=== PATIENT | female | born 1970 | race African-American/Black ===

== ENCOUNTER 2021-06-11 07:00 | Emergency (ER) | payer OTHER ==
[~2021-06-11] VITALS: Ht 165.1 cm; Wt 64.4 kg
--- NOTE | 2021-06-11 07:03 | NUR ---
PT BRANDIE BLS. TAKEN TO BED 3
[2021-06-11] MEDS ORDERED: MORPHINE SULFATE 4 MG/ML SYR IVP ONE (07:10)
[2021-06-11 07:12] VITALS: BP 155/93
--- NOTE | 2021-06-11 07:12 | NUR ---
51 y/o F [place] from grocery store c/o acute onset of substernal chest pain x 30 minutes prior to ER arrival. Pt A&Ox4, ambulatory, reports 7/10, sharp/intermittent, radiating to right arm that worsened. Pt states similar symptoms in the past alleviated with Tylenol. Denies fever, chills, nausea, vomiting, headache, edema. Pt received ASA 324mg by EMS prior to arrival; refused IV and NTG d/t contraindications with her levothyroxine. Cap refill immediate; skin pink/warm/dry. Pt placed onto monitor tech and gown. VSS. Bed locked in lowest position, side rails x 1. PMH: hypothyroidism, HTN Meds: lisinopril, levothyroxine A: PCN, sulfa, hydrochlorothiazide, clonidine
--- NOTE | 2021-06-11 07:15 | NUR ---
Patient refusing Morphine at this time. Dr. Newby made aware.
--- NOTE | 2021-06-11 07:24 | NUR ---
RAD at bedside
[2021-06-11 08:41] LABS: BASOPHILS # (AUTO) 0.1 K/uL (0.00-0.22); BASOPHILS % (AUTO) 1.2 % (0.0-2.0); EOSINOPHILS % (AUTO) 0.4 % (0.0-4.0); HEMATOCRIT 41.2 % (36-48); HEMOGLOBIN 13.7 g/dL (12.0-16.0); LYMPHOCYTES # (AUTO) 0.7 K/uL (2.5-16.5); LYMPHOCYTES % (AUTO) 14.5 % (20.5-51.1); MEAN CORPUSCULAR HEMOGLOBIN 30 pg (27-31); MEAN CORPUSCULAR HGB CONC 33 g/dL (33-37); MEAN CORPUSCULAR VOLUME 90.8 fL (80-94); MONOCYTES # (AUTO) 0.3 K/uL (0.8-1.0); MONOCYTES % (AUTO) 5.3 % (1.7-9.3); NEUTROPHILS % (AUTO) 78.6 % (42.2-75.2); PLATELET COUNT (AUTO) 249 K/uL (140-450); RED BLOOD CELL COUNT(AUTO) 4.54 MIL/uL (4.20-5.40); RED CELL DISTRIBUTION WIDTH 14.7 % (11.6-13.7); WHITE BLOOD COUNT (AUTO) 5.1 K/uL (4.8-10.8)
[2021-06-11] MEDS ORDERED: ACETAMINOPHEN EXTRA STRENGTH 500 MG TAB PO ONE (08:45)
--- NOTE | 2021-06-11 08:56 | NUR ---
Pt reports symptoms alleviated with rest; rates pain 4/10 at this time. All pt needs met. linseed cake trimmer remains in place. Respirations even/unlabored.
[2021-06-11 09:43] LABS: ALBUMIN 3.9 g/dL (3.4-5.0); ANION GAP 12.4 (8-16); CARBON DIOXIDE 28.9 mmol/L (21-32); CREATININE 0.9 mg/dL (0.6-1.3); MAGNESIUM 2.2 mg/dL (1.8-2.4); PHOSPHORUS 4.8 mg/dL (2.5-4.9); POTASSIUM 4.3 mmol/L (3.5-5.1); TOTAL BILIRUBIN 0.4 mg/dL (0.0-1.0)
--- NOTE | 2021-06-11 09:50 | NUR ---
Pt states pain 2/10 at this time. All pt needs met. desk monitor in place. VSS. Respirations even/unlabored. Bed locked in lowest position, side rails x 1.
[2021-06-11 12:26] VITALS: BP 156/81
--- NOTE | 2021-06-11 12:44 | NUR ---
Patient discharged with v/s stable. Written and verbal after care instructions given and explained. Patient verbalized understanding. Ambulatory with steady gait. All questions addressed prior to discharge. Advised to follow up with PMD.
== END 2021-06-11 12:44 | disposition home or self-care (01) ==
LOC: MED 07:00
DX: R07.89 Other chest pain (principal); I10 Essential (primary) hypertension; E03.9 Hypothyroidism, unspecified
CPT/HCPCS: 36415; 71045; 80053; 83735; 84100; 84484; 85025; 93005; 99285; Q0092

== ENCOUNTER 2021-08-21 07:37 | Emergency (ER) | payer OTHER ==
[~2021-08-21] VITALS: Ht 165.1 cm; Wt 58.2 kg
[2021-08-21 07:39] VITALS: BP 191/100
--- NOTE | 2021-08-21 07:52 | NUR ---
AT PT BEDSIDE
[2021-08-21] MEDS ORDERED: KETOROLAC 30 MG/ML VIAL IM ONE (07:55)
[2021-08-21] MEDS ORDERED: ACETAMINOPHEN 325 MG TAB PO ONE (07:55)
--- NOTE | 2021-08-21 07:58 | NUR ---
PT AMBULATED TO THE RESTROOM
--- NOTE | 2021-08-21 07:58 | NUR ---
51 Y/O FEMALE BIB SELF DUE TO C/O BODY ACHES X1 DAY. PT STATES SHE HAS BEEN HAVING R HAND NUMBNESS X TODAY. PT DENIES ANY FEVER/CHILLS/SOB. CURRENT BP 191/100. PT DENIES TAKING BP MEDICATION THIS AM DUE TO CAUSING BODY ACHES. PT IS ALERT AND ORIENTED X4. BED IN LOWEST POSITION. BED RAIL X1. PMH: HTN, HYPOTHYROID ALLERGIES: PENICILLINS, SULFA
--- NOTE | 2021-08-21 08:00 | NUR ---
LAB AT PT BEDSIDE
--- NOTE | 2021-08-21 08:12 | NUR ---
URINE GIVEN TO LAB AT BEDSIDE
[2021-08-21 08:29] LABS: ANION GAP 13.1 (8-16); CARBON DIOXIDE 28.7 mmol/L (21-32); POTASSIUM 3.8 mmol/L (3.5-5.1)
[2021-08-21] MEDS ORDERED: NITR100C7 PO (08:46)
[2021-08-21] MEDS ORDERED: NAPR-54 PO (08:46)
--- NOTE | 2021-08-21 09:06 | NUR ---
Patient discharged with v/s stable. Written and verbal after care instructions given and explained. Patient alert, oriented and verbalized understanding of instructions. Ambulatory with steady gait. All questions addressed prior to discharge. ID band removed. Patient advised to follow up with PMD. Rx of NAPROSYN, MACROBID 100MG CAP given. Patient educated on indication of medication including possible reaction and side effects. Opportunity to ask questions provided and answered.
== END 2021-08-21 09:05 | disposition home or self-care (01) ==
LOC: MED 07:37
DX: M79.10 Myalgia, unspecified site (principal); R25.2 Cramp and spasm; R20.0 Anesthesia of skin; I10 Essential (primary) hypertension; E03.9 Hypothyroidism, unspecified; Z88.0 Allergy status to penicillin
CPT/HCPCS: 36415; 80048; 81002; 81025; 87086; 99283; J1885